=== PATIENT | female | born 1990 | race Two or more races ===

== ENCOUNTER 2019-05-13 10:47 | Emergency (ER) | payer MEDICAID ==
[~2019-05-13] VITALS: Ht 165.1 cm; Wt 89.0 kg
[2019-05-13] MEDS ORDERED: KETOROLAC 60MG/2ML VIAL IM ONE (12:30)
[2019-05-13 13:40] VITALS: BP 128/78
== END 2019-05-13 14:00 | disposition home or self-care (01) ==
LOC: ER 10:47
DX: S40.011A Contusion of right shoulder, initial encounter (principal); S09.8XXA Other specified injuries of head, initial encounter; J45.909 Unspecified asthma, uncomplicated; Y04.0XXA Assault by unarmed brawl or fight, initial encounter; Y93.89 Activity, other specified; Y92.018 Other place in single-family (private) house as the place of occurrence of the external cause
CPT/HCPCS: 73030; 81025; 96372; 99283; J1885

== ENCOUNTER 2020-01-24 08:05 | Emergency (ER) | payer MEDICAID, OTHER ==
[~2020-01-24] VITALS: Ht 165.1 cm; Wt 82.0 kg
[2020-01-24] MEDS ORDERED: ACETAMINOPHEN 325MG TABLET PO ONE (10:30)
[2020-01-24] MEDS ORDERED: LIDOCAINE HCL/PF 1% 10 MG/ML 5ML VIAL IJ ONE (10:30)
[2020-01-24] MEDS ORDERED: TETANUS, DIPHTHERIA, PERTUSSIS VAC/PF 0.5ML (>7YR OLD) IM ONE (10:30)
[2020-01-24 12:22] VITALS: BP 118/68
== END 2020-01-24 12:23 | disposition home or self-care (01) ==
LOC: ER 08:05
DX: S49.81XA Other specified injuries of right shoulder and upper arm, initial encounter (principal); S69.81XA Other specified injuries of right wrist, hand and finger(s), initial encounter; S00.83XA Contusion of other part of head, initial encounter; S91.209A Unspecified open wound of unspecified toe(s) with damage to nail, initial encounter; J45.909 Unspecified asthma, uncomplicated; R00.0 Tachycardia, unspecified; Z23 Encounter for immunization; Y04.2XXA Assault by strike against or bumped into by another person, initial encounter; Y93.89 Activity, other specified; Y92.488 Other paved roadways as the place of occurrence of the external cause; Y99.8 Other external cause status
CPT/HCPCS: 11730; 71045; 73030; 73080; 73620; 90471; 90715; 93005; 99284; J3490